=== PATIENT | female | born 2000 | race Two or more races ===

== ENCOUNTER 2019-08-24 21:39 | Emergency (ER) | payer OTHER ==
[~2019-08-24] VITALS: Ht 162.6 cm; Wt 52.6 kg
[2019-08-24 21:40] VITALS: BP 131/78
[2019-08-24] MEDS ORDERED: FERR325T3 PO (21:45)
--- NOTE | 2019-08-25 08:08 | REP ---
Clinical: Trauma. Technique: AP, lateral, bilateral oblique views left wrist . Findings: The carpal bones, surrounding osseous structures, soft tissues, and joint spaces are normal. There is no evidence for acute fracture or dislocation. No subcutaneous emphysema or radiodense foreign body. Impression: No acute fracture or dislocation If the patient remains symptomatic consider reevaluation in 3-5 days including scaphoid view if necessary. Electronically Signed by Kamar Arias MD 08/25/2019 07:59 A
--- NOTE | 2019-08-25 08:08 | REP ---
Clinical: Trauma. Technique: AP, lateral, bilateral oblique views left hand . Findings: The osseous structures and joint spaces are intact and normal. There is no evidence for acute fracture or dislocation. Surrounding soft tissues are unremarkable. No subcutaneous emphysema or radiodense foreign body. Impression: Normal left hand series . No acute fracture or dislocation. Electronically Signed by Kamar Arias MD 08/25/2019 08:00 A
== END 2019-08-24 23:04 | disposition home or self-care (01) ==
LOC: M ED 21:39
DX: S63.617A Unspecified sprain of left little finger, initial encounter (principal); X50.0XXA Overexertion from strenuous movement or load, initial encounter; Y92.9 Unspecified place or not applicable; Z88.0 Allergy status to penicillin; Z79.899 Other long term (current) drug therapy

== ENCOUNTER → 2020-02-23 | Emergency (ER) | payer OTHER ==
[~2020-02-23] MED LIST: FERR325T3 PO
== END | disposition home or self-care (01) ==
LOC: M ED 21:06
DX: T63.441A Toxic effect of venom of bees, accidental (unintentional), initial encounter (principal); Y92.9 Unspecified place or not applicable; Y93.9 Activity, unspecified; Z79.3 Long term (current) use of hormonal contraceptives; Z79.899 Other long term (current) drug therapy; Z91.010 Allergy to peanuts; Z88.0 Allergy status to penicillin

== ENCOUNTER → 2020-09-04 | Outpatient (CLI) | payer OTHER ==
[2020-09-04 14:42] LABS: EOS # 0.4 10^3/uL (0.0-0.5); EOS % 10.7 % (0.0-3.0); HEMATOCRIT 39.1 % (36.0-47.0); LYMPH # 1.1 10^3/uL (1.5-5.0); MEAN CORPUSCULAR HEMOGLOBIN 26.8 pg (27.0-33.0); MEAN CORPUSCULAR HGB CONC 33.2 g/dl (32.0-36.5); MEAN CORPUSCULAR VOLUME 80.6 fl (80.0-96.0); MONO # 0.4 10^3/uL (0.0-0.8); MONO % 9.9 % (2.0-8.0); NEUTROPHILS # 2.1 10^3/uL (1.5-8.5); NEUTROPHILS % 51.2 % (36.0-66.0); PLATELET COUNT, AUTOMATED 300 10^3/uL (150-450); RED BLOOD COUNT 4.85 10^6/uL (4.00-5.40)
[2020-09-04 14:59] LABS: BLOOD UREA NITROGEN 8 MG/DL (7-18); CALCIUM LEVEL 9.1 MG/DL (8.5-10.1); CARBON DIOXIDE LEVEL 27 MEQ/L (21-32); CHLORIDE LEVEL 105 MEQ/L (98-107); CREATININE FOR GFR 0.77 MG/DL (0.55-1.30); GLOMERULAR FILTRATION RATE > 60.0 (>60); GLUCOSE, FASTING 85 MG/DL (70-100); POTASSIUM SERUM 3.8 MEQ/L (3.5-5.1); SODIUM LEVEL 139 MEQ/L (136-145)
== END ==
LOC: M LAB 14:02
PROVIDERS: ATTEND Internal Medicine Interventional Cardiology
DX: I95.1 Orthostatic hypotension (principal); K22.6 Gastro-esophageal laceration-hemorrhage syndrome; N00-N99 Diseases of the genitourinary system

== ENCOUNTER → 2020-09-06 | Outpatient (REF) | payer OTHER ==
[2020-09-06 18:34] LABS: CREATININE, SERUM 0.8 MG/DL (0.6-1.0)
[2020-09-06 18:35] LABS: CREATININE CLEARANCE, URINE 131.5 ML/MIN (75-115)
== END ==
LOC: M LAB REF 14:11
PROVIDERS: ATTEND Internal Medicine Interventional Cardiology
DX: I95.1 Orthostatic hypotension (principal); N00-N99 Diseases of the genitourinary system; K22.6 Gastro-esophageal laceration-hemorrhage syndrome

== ENCOUNTER → 2020-09-15 | Outpatient (CLI) | payer OTHER ==
[2020-09-15 09:03] LABS: FREE T4 0.94 NG/DL (0.76-1.46); THYROID STIMULATING HORMONE 2.47 uIU/ML (0.358-3.740)
== END ==
LOC: M LAB 08:03
PROVIDERS: ATTEND Nurse Practitioner Family
DX: E06.3 Autoimmune thyroiditis (principal)

== ENCOUNTER 2021-06-21 08:06 | Emergency (ER) | payer OTHER ==
[~2021-06-21] VITALS: Ht 162.6 cm; Wt 59.0 kg
[2021-06-21] MEDS ORDERED: MIDO2.5T (08:18)
[2021-06-21] MEDS ORDERED: NEXP1IMP (08:18)
[2021-06-21] MEDS ORDERED: ACET325C5 PO (08:18)
[2021-06-21] MEDS ORDERED: ONDANSETRON 4MG/2ML VIAL IV ONE ×2 (09:45→10:00)
[2021-06-21] MEDS ORDERED: NS 1,000 ML IV ONE ×2 (09:45→10:00)
[2021-06-21] MEDS ORDERED: KETOROLAC 30 MG/ML 1ML VIAL IV ONE (10:00)
[2021-06-21 10:27] LABS: BASO % 0.4 % (0.0-1.0); EOS # 0.5 10^3/uL (0.0-0.5); EOS % 6.7 % (0.0-3.0); HEMATOCRIT 37.4 % (36.0-47.0); HEMOGLOBIN 12.6 g/dl (12.0-15.5); LYMPH # 1.4 10^3/uL (1.5-5.0); LYMPH % 18.6 % (24.0-44.0); MEAN CORPUSCULAR HEMOGLOBIN 27.3 pg (27.0-33.0); MEAN CORPUSCULAR HGB CONC 33.7 g/dl (32.0-36.5); MONO # 0.5 10^3/uL (0.0-0.8); MONO % 6.2 % (2.0-8.0); NEUTROPHILS % 67.8 % (36.0-66.0); PLATELET COUNT, AUTOMATED 292 10^3/uL (150-450); RED BLOOD COUNT 4.62 10^6/uL (4.00-5.40); WHITE BLOOD COUNT 7.3 10^3/uL (4.0-10.0)
[2021-06-21 10:45] LABS: ACETAMINOPHEN LEVEL 28.4 UG/ML (10.0-30.0); ALBUMIN 3.9 GM/DL (3.2-5.2); ALT/SGPT 15 U/L (12-78); BILIRUBIN,DIRECT < 0.1 MG/DL (0.0-0.2); BILIRUBIN,TOTAL 0.3 MG/DL (0.2-1.0); BLOOD UREA NITROGEN 7 MG/DL (7-18); CALCIUM LEVEL 9.2 MG/DL (8.5-10.1); CARBON DIOXIDE LEVEL 24 MEQ/L (21-32); CHLORIDE LEVEL 106 MEQ/L (98-107); CREATININE FOR GFR 0.75 MG/DL (0.55-1.30); GLOMERULAR FILTRATION RATE > 60.0 (>60); GLUCOSE, FASTING 89 MG/DL (70-100); LIPASE 81 U/L (73-393); POTASSIUM SERUM 3.6 MEQ/L (3.5-5.1); SODIUM LEVEL 137 MEQ/L (136-145); TOTAL PROTEIN 7.1 GM/DL (6.4-8.2)
[2021-06-21] MEDS ORDERED: ISOVUE-370 76% 100ML VIAL As Ordered ONE (11:13)
[2021-06-21 13:14] VITALS: BP 123/62
[2021-06-21] MEDS ORDERED: KETO10TAB PO (13:24)
== END 2021-06-21 13:48 | disposition home or self-care (01) ==
LOC: M ED 08:06
DX: N83.201 Unspecified ovarian cyst, right side (principal); D25.9 Leiomyoma of uterus, unspecified; N92.6 Irregular menstruation, unspecified; Z88.0 Allergy status to penicillin; Z79.899 Other long term (current) drug therapy
CPT/HCPCS: 74177; 80047; 80053; 80143; 81001; 82248; 83690; 84702; 85025; 96361; 96374; 99284; J1885; J2405; Q9967

== ENCOUNTER → 2021-09-07 | Outpatient (CLI) | payer OTHER ==
[~2021-09-07] MED LIST changes: +ACET325C5 PO; +KETO10TAB PO; +MIDO2.5T; +NEXP1IMP
[2021-09-07 16:05] LABS: HEMATOCRIT 39.5 % (36.0-47.0); HEMOGLOBIN 13.5 g/dl (12.0-15.5); MEAN CORPUSCULAR HEMOGLOBIN 27.5 pg (27.0-33.0); MEAN CORPUSCULAR HGB CONC 34.2 g/dl (32.0-36.5); MEAN CORPUSCULAR VOLUME 80.4 fl (80.0-96.0); PLATELET COUNT, AUTOMATED 293 10^3/uL (150-450); RED BLOOD COUNT 4.91 10^6/uL (4.00-5.40); WHITE BLOOD COUNT 6.4 10^3/uL (4.0-10.0)
[2021-09-07 16:29] LABS: ALBUMIN 4.2 GM/DL (3.2-5.2); ALT/SGPT 14 U/L (12-78); BILIRUBIN,TOTAL 0.5 MG/DL (0.2-1.0); BLOOD UREA NITROGEN 6 MG/DL (7-18); CALCIUM LEVEL 9.3 MG/DL (8.5-10.1); CARBON DIOXIDE LEVEL 29 MEQ/L (21-32); CHLORIDE LEVEL 106 MEQ/L (98-107); CREATININE FOR GFR 0.87 MG/DL (0.55-1.30); GLOMERULAR FILTRATION RATE > 60.0 (>60); GLUCOSE, FASTING 106 MG/DL (70-100); POTASSIUM SERUM 3.7 MEQ/L (3.5-5.1); RHEUMATOID FACTOR QUANT < 10.0 IU/ML (<15.0); SODIUM LEVEL 138 MEQ/L (136-145); TOTAL PROTEIN 7.5 GM/DL (6.4-8.2)
[2021-09-07 16:41] LABS: ERYTHROCYTE SEDIMENTATION RATE 7 mm/hr (0-20)
== END ==
LOC: M LAB 15:31
PROVIDERS: ATTEND Nurse Practitioner Family
DX: A69.23 Arthritis due to Lyme disease (principal)